=== PATIENT | male | born 1950 | race Caucasian/White ===

== ENCOUNTER 2020-11-16 09:25 | Inpatient (IN) ==
--- NOTE | 2020-10-19 10:41 | PAT Medication Instructions ---
Medication Instructions Date of Service October 19, 2020 Home Medications irbesartan 150 mg-hydrochlorothiazide 12.5 mg tablet 1 tab PO QAM metoprolol succinate 25 mg tablet,extended release 24 hr 25 mg PO QAM rivaroxaban 20 mg tablet 20 mg PO QAM tamsulosin 0.4 mg capsule 0.4 mg PO HS Hydroxymethybutyrate 1,000 mg PO QAM acetaminophen [Tylenol] 325 mg PO QID PRN cholecalciferol (vitamin D3) [Vitamin D3] 25 mcg PO DAILY coenzyme Q10 [Co Q-10] 100 mg PO DAILY multivitamin 1 cap PO QAM omega-3 fatty acids [Fish Oil] 1,000 mg PO DAILY zinc 50 mg PO DAILY ASK your prescriber and surgeon rivaroxaban 20 mg tablet 20 mg PO QAM STOP taking 2 weeks before surgery (or as soon as possible if surgery is within 2 weeks) Hydroxymethybutyrate 1,000 mg PO QAM coenzyme Q10 [Co Q-10] 100 mg PO DAILY omega-3 fatty acids [Fish Oil] 1,000 mg PO DAILY zinc 50 mg PO DAILY DO NOT take the morning of surgery irbesartan 150 mg-hydrochlorothiazide 12.5 mg tablet 1 tab PO QAM cholecalciferol (vitamin D3) [Vitamin D3] 25 mcg PO DAILY multivitamin 1 cap PO QAM Take morning of surgery With a small sip of water, OTHERWISE NOTHING TO EAT OR DRINK AFTER MIDNIGHT: metoprolol succinate 25 mg tablet,extended release 24 hr 25 mg PO QAM acetaminophen [Tylenol] 325 mg PO QID PRN (okay to take up to 4 hours prior to surgery if needed) Take evening before surgery tamsulosin 0.4 mg capsule 0.4 mg PO HS acetaminophen [Tylenol] 325 mg PO QID PRN (if needed) Other Notes If you have any questions please call us at [phone] or [phone] or [phone] or [phone]
--- NOTE | 2020-10-22 14:10 | Anesthesiology Consultation ---
Date of Service October 22, 2020 Assessment & Plan (1) Encounter for pre-operative examination: - COVID screening: Per assessment on 10/22: Travel screen negative since 10/05 (returned from travel to [place], [place] 10/05 for turkey hunting camping in the [facility]). No known COVID-19 positive contacts or current COVID-19 related symptoms. Patient was personally COVID positive 04/29/20 > Symptoms at time of loss of smell/taste, fatigue > resolved. Patient vaccinated. Surgeon arranging preop COVID testing. Awaiting results. - Xarelto instructions: per surgeon/prescriber - Cardiology office visit (03/22/20): "Continue Xarelto for stroke prevention in the setting of atrial fibrillation with [id number] = 2.. Intolerant of all statins.. patient was able to lower LCL to 79 with diet and Citrucel.. Asymptomatic coronary atherosclerosis based on CT from 06/19/2016.. Blood pressure elevated todaywe will increase metoprolol.. Stable from a cardiac standpoint for planned right ankle replacement." Now scheduled for left shoulder athroplasty. Chart Review Chart Review: Acceptable Risk for Surgery and Patient seen in Pre Admission Testing Teaching & Discussion Pre-Anesthesia Teaching/Discussion Notes: Instructed NPO after midnight before surgery,except medications with 15 cc of water. Medication instructions provided according to the PAT guidelines. History Surgery Operation Date: 11/16/20 10:15 Proposed Procedures p Left Reverse Total Shoulder Arthroplasty - Samir Andres, Height/Weight Height: 5 ft 11.75 in Weight: 101.1 kg Allergies Allergy/AdvReac Type Severity Reaction Status Date / Time No Known Allergies Allergy Verified 10/10/20 11:49 Medications Home Medications Medication Instructions Recorded Confirmed Last Taken irbesartan 150 1 tab PO QAM 08/21/20 10/10/20 Unknown mg-hydrochlorothiazide 12.5 mg tablet metoprolol succinate 25 mg 25 mg PO QAM 08/21/20 10/10/20 Unknown tablet,extended release 24 hr rivaroxaban 20 mg tablet 20 mg PO QAM 08/21/20 10/10/20 Unknown tamsulosin 0.4 mg capsule 0.4 mg PO 08/21/20 10/10/20 Unknown Hydroxymethybutyrate 1,000 mg PO QAM 10/10/20 10/10/20 Unknown acetaminophen [Tylenol] 325 mg PO QID PRN 10/10/20 10/10/20 Unknown cholecalciferol (vitamin D3) 25 mcg PO DAILY 10/10/20 10/10/20 Unknown [Vitamin D3] coenzyme Q10 [Co Q-10] 100 mg PO DAILY 10/10/20 10/10/20 Unknown multivitamin 1 cap PO QAM 10/10/20 10/10/20 Unknown omega-3 fatty acids [Fish Oil] 1,000 mg PO DAILY 10/10/20 10/10/20 Unknown zinc 50 mg PO DAILY 10/10/20 10/10/20 Unknown Past Medical History Medical History Atrial fibrillation BPH (benign prostatic hyperplasia) History of COVID-19 Dx 04/29/20 > Symptoms at time of loss of smell/taste, fatigue > resolved Hx of blood clots Post-op back surgery (2016)- on Xarelto Hypertension Obesity Osteoarthritis Exercise / Class Metabolic Activity II 4-5 Yardwork/Stairs/Walk up hill Past Surgical History Surgical History History of arthroscopy Right ankle (bone chip removal) History of lumbar fusion History of right ankle joint replacement Hx of colonoscopy Hx of right knee surgery Tendon repair Past Anesthesia History No Hx of Anesthesia Complications and No Family Hx of Anesthesia Complications History of PONV No Hx of PONV and Hx of Motion Sickness (+ boats) Social History Smoking Status: Never smoker Do You Dip or Chew Tobacco: No Hx Alcohol Use: Yes Alcohol type: beer alcohol intake frequency: a few times a month Hx Substance Use: No substance use type: does not use Review of Systems Patient denies chest pain, shortness of breath, dyspnea on exertion, fever, chills, cough, wheezing, palpitations. Physical Exam Vital Signs VITALS BP 123/79 P 59 TEMP 98.2 SP02 97%RA RESP 16 PHYSICAL Full cervical extension range of motion. Full TMJ range of motion. TMD 4 finger breaths Mallampati Score 1 Dentition: missing molars, + implant (left upper front) Lungs: clear throughout to auscultation Cardiac: regular rate and rhythm, no murmurs noted Spine: normal Carotid arteries: negative bruit Extremities: no edema Testing Laboratory Results 10/22/20 15:00 10/22/20 15:00 PT 11.9 Seconds (9.0-12.0) 10/22/20 15:00 INR 1.2 (0.9-1.1) H 10/22/20 15:00 APTT 30.9 Seconds (21.0-31.0) 10/22/20 15:00 Blood Type A Positive 10/22/20 15:00 Antibody Screen NEGATIVE 10/22/20 15:00 Electrocardiogram Date: 03/22/20 Sinus rhythm at 64 bpm. PAC. RBBB. Echocardiogram Date: 02/16/18 Normal LV cavity size, wall thickness and preserved LV systolic function. EF equals 60%. Stress Test Date: 10/01/16 Type: exercise Cardiolite exercise treadmill stress test with target heart rate achieved. Moderate dyspnea but no chest pain. Fair exercise tolerance. Normal uptake of radioactivity both the stress and resting images. There is no evidence of ischemic change or old myocardial infarct. There is normal left ventricular wall motion. LVEF 69%. Other Testing CT Thorax (09/17/20): Stable appearance of multiple small pulmonary nodules as compared to previous study of 07/11/2019. No evidence of new acute cardiopulmonary disease. Moderate coronary artery calcification is present.
[2020-10-22 15:38] LABS: Basophils # (auto) 0.04 K/uL (0-0.2); Basophils % (auto) 0.7 %; Eosinophils # (auto) 0.09 K/uL (0-0.5); Eosinophils % (auto) 1.6 %; Hematocrit (blood only) 43.6 % (42-52); Hemoglobin 14.9 g/dL (14.0-18.0); Immature Granulocytes # (auto) 0.01 K/uL (0.00-0.02); Immature Granulocytes % (auto) 0.2 %; Lymphocytes # (auto) 1.64 K/uL (1.2-3.4); Lymphocytes % (auto) 28.5 %; Mean Corpuscular Hemoglobin 32.7 pg (25-34); Mean Corpuscular Hgb Conc 34.2 g/dL (32-36); Mean Corpuscular Volume 95.8 fL (80-100); Mean Platelet Volume 9.6 fL (7.4-10.4); Monocytes # (auto) 0.76 K/uL (0.11-0.59); Monocytes % (auto) 13.2 %; Neutrophils # (auto) 3.21 K/uL (1.4-6.5); Neutrophils % (auto) 55.8 %; Platelet Count 347 K/uL (130-400); RDW Coefficient of Variation 13.3 % (11.5-14.5); RDW Standard Deviation 46.6 fL (36.4-46.3); Red Blood Count 4.55 M/uL (4.7-6.1); White Blood Count 5.75 K/uL (4.8-10.8)
[2020-10-22 15:47] LABS: BUN Creatinine Ratio 28.4 (10-20); Calcium 9.3 mg/dl (8.5-10.1); Creatinine Clr Calc Pharmacy 101.9 ml/min; Est GFR (African American) 103.8 ml/min; Est GFR (Non-African American) 89.5 ml/min; Potassium 3.9 mmol/L (3.5-5.1)
[2020-10-22 15:48] LABS: INR 1.2 (0.9-1.1); Partial Thromboplastin Ratio 1.2; Partial Thromboplastin Time 30.9 Seconds (21.0-31.0); Prothrombin Time 11.9 Seconds (9.0-12.0)
--- NOTE | 2020-11-15 15:59 | History & Physical Report ---
Date of Service November 15, 2020 Assessment & Plan (1) Rotator cuff arthropathy of left shoulder: We will proceed with a left reverse shoulder arthroplasty. Postoperatively he will be placed in a sling and kept overnight in the hospital for postoperative medical management. He plans to use [facility] for physical therapy upon discharge. History of Present Illness Chief Complaint: Rotator cuff arthropathy of the left shoulder. Primary Care Provider: Sonia Stewart PA-C Tushar is a pleasant 70-year-old female who is been dealing with chronic increasing left shoulder pain. He has an MRI of his left shoulder in 2019 which showed some partial-thickness cuff tearing. He was treated conservatively. He never had surgery on his shoulder. His shoulders become much much worse. 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 He has difficult time reach seen away from his body or doing anything overhead. He does have a lot of weakness of his shoulder. He had a repeat MRI which shows a massive chronic retracted rotator cuff tear. After failing conservative treatment, he has elected proceed with a left reverse shoulder arthroplasty.. Allergies Allergy/AdvReac Type Severity Reaction Status Date / Time No Known Allergies Allergy Verified 10/10/20 11:49 Home Medications Medication Instructions Recorded Confirmed Type irbesartan 150 1 tab PO QAM 08/21/20 10/10/20 History mg-hydrochlorothiazide 12.5 mg tablet metoprolol succinate 25 mg 25 mg PO QAM 08/21/20 10/10/20 History tablet,extended release 24 hr rivaroxaban 20 mg tablet 20 mg PO QAM 08/21/20 10/10/20 History tamsulosin 0.4 mg capsule 0.4 mg PO HS 08/21/20 10/10/20 History Hydroxymethybutyrate 1,000 mg PO QAM 10/10/20 10/10/20 History acetaminophen [Tylenol] 325 mg PO QID PRN 10/10/20 10/10/20 History cholecalciferol (vitamin D3) 25 mcg PO DAILY 10/10/20 10/10/20 History [Vitamin D3] coenzyme Q10 [Co Q-10] 100 mg PO DAILY 10/10/20 10/10/20 History multivitamin 1 cap PO QAM 10/10/20 10/10/20 History omega-3 fatty acids [Fish Oil] 1,000 mg PO DAILY 10/10/20 10/10/20 History zinc 50 mg PO DAILY 10/10/20 10/10/20 History Past Med/Surg History Medical History Atrial fibrillation BPH (benign prostatic hyperplasia) History of COVID-19 Dx 04/29/20 > Symptoms at time of loss of smell/taste, fatigue > resolved Hx of blood clots Post-op back surgery (2017)- on Xarelto Hypertension Obesity Osteoarthritis Surgical History History of arthroscopy Right ankle (bone chip removal) History of lumbar fusion History of right ankle joint replacement Hx of colonoscopy Hx of right knee surgery Tendon repair Social History Smoking Status: Never smoker Second Hand Exposure: No; Do You Dip or Chew Tobacco: No; Tobacco Cessation Education Requested by Patient: No Hx Alcohol Use: Yes Alcohol type: beer Hx Substance Use: No Preferred Language: Estonian Communication Ability: Effective Tilesetter Required: No Beliefs That Will Affect Care: None Current Living Situation: Spouse Other Information That Helps Us Care for You: No Feels Safe at Home: Yes Safety Concerns: Feels Safe At This Time Assistive Devices: None Review of Systems All systems reviewed & are unremarkable except as noted in HPI & below. Physical Exam On physical examination of the left shoulder, he has about 130 degrees forward elevation 130 degrees of abduction. He has 3-5 motion with full can testing and external rotation. Negative belly press test. He has a lot of pain in the subacromial space.. Constitutional WD/WN, vitals as above Eyes PERRL, conjunctivae normal, anicteric sclerae ENMT external ear and nose normal, oropharynx normal Neck trachea midline, no thyromegaly Respiratory normal respiratory effort Cardiovascular RRR, no murmur, no edema Gastrointestinal (Abdomen) normal bowel sounds, soft, nontender, no hepatosplenomegaly Psychiatric A+Ox3, euthymic affect Results & Data Results & Data Laboratory Results . Diagnostic Findings X-rays of the left shoulder show mild osteoarthritis. There is some blunting of the greater tuberosity. MRI of the left shoulder shows a massive chronic retracted rotator cuff tear that is retracted past the level of the glenoid.. PG Care Time/CCT Total # of Minutes Spent Total Time Spent with Patient: Total time spent is greater than 50% in coordination of care (as documented) at patient's floor/unit and/or counseling patient: Coding Level of Care Code None Diagnoses Rotator cuff arthropathy of left shoulder M12.812
[~2020-11-16 09:25] MED LIST: ACETAMINOPHEN 500 MG TAB PO SCH; BUPIVACAINE 0.5 % 5 MG/1 ML PF 10ML VIAL ONE; FAMOTIDINE 20 MG TAB PO SCH; GABAPENTIN 300 MG CAP PO SCH; LR 15ML/HR IV SCH; LR 60ML/HR IV SCH; ROPIVACAINE 0.5% HCL/PF 150 MG, BUPIVACAINE 0.75% MPF 20 ML, EPINEPHrine 30MG/30ML (OR ... INSTIL SCH; ceFAZolin 2000MG 2,000 MG/15 ML SYR IV SCH; dexAMETHasone 4 MG TAB PO SCH
[2020-11-16] MEDS ORDERED: SUGAMMADEX SODIUM 200 MG/2 ML VIAL IV ONE (10:33)
[2020-11-16] MEDS ORDERED: fentaNYL citrate 100 MCG/2 ML VIAL ONE (10:41)
[2020-11-16] MEDS ORDERED: MIDAZOLAM HCL 1 MG/ML 2ML VIAL ONE (10:41)
[2020-11-16] MEDS ORDERED: DEXAMETHASONE SOD INJ 4 MG/ML VIAL ONE (10:42)
[2020-11-16] MEDS ORDERED: PROPOFOL IV EMULSION 10 MG/ML 20 ML VIAL IV ONE (10:42)
[2020-11-16] MEDS ORDERED: LIDOCAINE 2% 2 ML VIAL/AMP(20MG/ML) INFIL ONE (10:42)
[2020-11-16] MEDS ORDERED: ROCURONIUM BROMIDE 10 MG/ML 5 ML VIAL IV ONE (10:42)
[2020-11-16] MEDS ORDERED: KETOROLAC 30 MG/ML VIAL ONE (10:42)
[2020-11-16] MEDS ORDERED: ONDANSETRON INJ 2 MG/ML 2 ML VIAL ONE (10:42)
--- NOTE | 2020-11-16 11:30 | History & Physical Bridge Note ---
Date of Service November 16, 2020 History & Physical Bridge Note I have examined the patient, reviewed the History & Physical and in the interval since the performance of the History & Physical I have noted the following changes of clinical significance: no changes noted
[2020-11-16] MEDS ORDERED: ORTHO JOINT ANESTHETIC ONE (11:47)
[2020-11-16] MEDS ORDERED: fentaNYL citrate 100 MCG/2 ML VIAL IV PRN (11:56)
[2020-11-16] MEDS ORDERED: PROMETHAZINE HCL 6.25 MG in SODIUM CHLORIDE 0.9% 50 ML IV PRN (11:56)
[2020-11-16] MEDS ORDERED: ATROPINE SULFATE 0.1 MG/ML 10ML SYR IV PRN (11:56)
[2020-11-16] MEDS ORDERED: KETOROLAC 30 MG/ML VIAL IV PRN (11:56)
[2020-11-16] MEDS ORDERED: ONDANSETRON INJ 2 MG/ML 2 ML VIAL IV PRN ×2 (11:56→15:12)
[2020-11-16] MEDS ORDERED: LABETALOL HCL IV 5 MG/ML 20ML IV PRN (11:56)
[2020-11-16] MEDS ORDERED: ePHEDrine sulfate 50 MG/ML AMP ONE (13:26)
--- NOTE | 2020-11-16 13:58 | Operative Report ---
PG Post Operative Report Pre & Post Diagnosis Operation Date: 11/16/20 11:50 Pre-Op Diagnosis: Rotator cuff arthropathy of left shoulder with tendinopathy of the long head of the biceps tendon Post-Op Diagnosis: Rotator cuff arthropathy of left shoulder with tendinopathy of the long head of the biceps tendon I identified the patient and participated in the time-out.: Yes Procedure Operation Date: 11/16/20 11:50 Actual Procedures p Left Reverse Total Shoulder Arthroplasty(Left) with open biceps tenodesis as a distinct and separate procedure (modifier 59)- Samir Andres DO Surgeon Samir Andres DO Reel And Rewinder Operator Samir Dixon PAC Estimated Blood Loss 250 Findings Consistent with Post-Op Diagnosis Specimens Left humeral head Complications none Disposition Disposition: Recovery Room Indications Tushar is a pleasant 70-year-old male who is been dealing with chronic increasing left shoulder pain and weakness. MRI showed a large chronic retracted rotator cuff tear. After failing conservative treatment, he elected proceed with a left reverse shoulder replacement. Description of Procedure A CPT code modifier 59: The long head of the biceps tendon was enlarged and inflamed consistent with tendinopathy. A tenodesis was opted. This was a separate and distinct portion of the procedure. For these reasons, a CPT code modifier 59 will be added to this case. Implants used: I used a [employer] Comprehensive reverse total shoulder arthroplasty system with a size 13 press fit micro humeral stem, a +3 offset humeral tray and a standard humeral bearing, a 25 mm small augment baseplate with a 6.5 mm central screw and superior and inferior locking screws, and a size 40 mm eccentric glenosphere. Tushar arrived at [facility] for the above procedure. He was seen in the preoperative holding area and the operative extremity was identified and signed. He was given a preoperative antibiotic, TXA, and an interscalene nerve block. He was taken back to the operating room, laid on table in supine position, and put under general anesthesia. He was then put into the beachchair position. The shoulder was then prepped and draped in sterile fashion. A timeout was done and the patient and the operative extremity was properly identified. A deltopectoral approach was used. Dissection was taken down through the fascia and the deltoid was retracted laterally and the conjoined tendon was retracted medially. The anterior shoulder was exposed. The biceps groove was opened up and the biceps tendon was examined extensively. The biceps tendon demonstrated enlargement and inflammatory changes consistent with longstanding inflammation in the context of osteoarthritis and cuff arthropathy. The long head of the biceps tendon was then tenodesed to the upper border of the pectoralis major. This was a separate and distinct portion of the procedure. The subscapularis was then directly released off the lesser tuberosity with a peel technique. The inferior capsule was released and the humeral head was dislocated. A canal finding reamer was sent down the center of the humeral canal. Sequential reaming up to a size 13 reamer was done. Off that reamer, a proximal humeral resection guide was placed. The proximal humerus was resected at 135 of inclination and 25 of retroversion. Osteophytes were then removed and the glenoid was exposed. Time was spent doing a complete capsular and labral release. The glenoid guide was then placed in the inferior aspect of the glenoid. A 3.2 mm Steinmann pin was then placed into the glenoid vault at 10 of inclination. The glenoid baseplate was then reamed. The final size 25 mm small augment baseplate was then impacted in the place. A 6.5 mm central screw was then placed followed by superior and inferior locking screws. A 40 mm eccentric glenosphere was then impacted into place. Surrounding soft tissues were then injected with 100 cc an orthopedic pain control cocktail. The proximal humerus was then exposed. Sequential broaching of the humerus up to a size 13 broach was done. Off that broach a +3 offset humeral tray was trialed. The shoulder was then reduced, brought through a full range of motion, and felt to be stable. The shoulder was then dislocated and the broach was removed. The final size 13 micro press-fit humeral stem was then impacted into place. A standard humeral bearing was then snapped onto a +3 offset humeral tray. The humeral tray was then impacted onto the humeral stem. The shoulder was once again reduced, brought through a full range of motion, and felt to be stable. The subscapularis was then tenodesed back to the lesser tuberosity with transosseous FiberWire sutures and side to side sutures with the arm in 45 of external rotation. A dilute betadyne lavage was then done for 3 minutes. The joint was then irrigated with normal saline solution. Hemostasis was obtained. The interval was closed with 2-0 Vicryl suture. The skin was then closed with 2-0 Vicryl and allison. A Silverlon dressing was placed and the arm was rested in a regular arm sling. He was then extubated and transferred to a hospital bed. He taken to the postanesthesia care unit in stable condition. He tolerated the procedure well. Samir Dixon PA-C, was present for the entire procedure. He was critical for patient positioning, prepping, draping, retraction exposure, wound closure and application of sterile dressing. I attest to the content of the Intraoperative Record and any orders documented therein. Any exceptions are noted below.
--- NOTE | 2020-11-16 14:36 | Anesthesiology Progress Note ---
Date of Service November 16, 2020 Anesthesia Post Procedure Vital Signs Vital Signs: Temp Pulse Pulse Resp BP BP Pulse Ox 11/16/20 14:30 72 17 145/82 H 97 11/16/20 14:20 73 17 134/68 97 11/16/20 14:14 36.0 C L 74 18 136/77 97 11/16/20 10:01 36.7 C 58 L 20 170/93 H 97 Transfer of Care Handoff Completed per policy Notes Mental Status: alert / awake / arousable Patient Amnestic to Procedure: Yes Nausea / Vomiting: adequately controlled Pain: adequately controlled Airway Patency, RR, SpO2: stable & adequate BP & HR: stable & adequate Hydration State: stable & adequate Anesthetic Complications: no major complications apparent
--- NOTE | 2020-11-16 14:47 | XRay Report ---
XR shoulder LT min 2V routine HISTORY: 70 years-old Male Post shoulder surgery left shoulder total joint arthroplasty COMPARISON: Shoulder radiographs 08/21/2020 TECHNIQUE: 2 views of the left shoulder FINDINGS: Reverse total joint arthroplasty. Overlying skin allison are present along with expected postoperativ e soft tissue swelling with deep tissue air. Marginal spurring of the AC joint. No acute fracture or unexpected opaque foreign body. IMPRESSION: Reverse left shoulder total joint arthroplasty with expected postoperative changes. ACT 112: Negative or not required by law. The above report was generated using voice recognition software. It may contain grammatical, syntax o r spelling errors. Electronically signed by: Cyril Espinosa M.D. 11/16/2020 2:46 PM
[2020-11-16] MEDS ORDERED: oxyCODONE HCL IR 5 MG TAB (IMMEDIATE RELEASE) PO PRN (15:12)
[2020-11-16] MEDS ORDERED: HYDROmorphone INJ 0.5 MG/0.5 ML SYR IV PRN (15:12)
[2020-11-16] MEDS ORDERED: bisacodyL 10 MG SUPP PR PRN (15:12)
[2020-11-16] MEDS ORDERED: MAGNESIUM HYDROXIDE SUSP 30 ML UDC PO PRN (15:12)
[2020-11-16] MEDS ORDERED: METOCLOPRAMIDE HCL INJ 5 MG/ML 2 ML VIAL IV PRN (15:12)
[2020-11-16] MEDS ORDERED: NALOXONE HCL 0.4 MG/1 ML VIAL/CARP IV PRN (15:12)
[2020-11-16] MEDS: SODIUM CHLORIDE 0.9% 1000ML 1,000 ML IV SCH (17:35)
[2020-11-16] MEDS: KETOROLAC TROMETHAMINE 15 MG/ML VIAL IV SCH ×2 (17:36→23:34)
[2020-11-16] MEDS: ceFAZolin 2000MG 2,000 MG/15 ML SYR IV SCH (19:45)
[2020-11-16] MEDS ORDERED: SENNA 8.6 MG TAB PO SCH (21:00)
[2020-11-16] MEDS ORDERED: TAMSULOSIN HCL 0.4 MG CAP PO SCH (21:00)
[2020-11-16] MEDS: DOCUSATE SODIUM 100 MG CAP PO SCH (22:04)
[2020-11-16] MEDS: ACETAMINOPHEN 500 MG TAB PO SCH (22:05)
[2020-11-17] MEDS: SODIUM CHLORIDE 0.9% 1000ML 1,000 ML IV SCH (03:18)
[2020-11-17] MEDS: ceFAZolin 2000MG 2,000 MG/15 ML SYR IV SCH (03:45)
[2020-11-17] MEDS: ACETAMINOPHEN 500 MG TAB PO SCH (06:11)
[2020-11-17] MEDS: KETOROLAC TROMETHAMINE 15 MG/ML VIAL IV SCH (06:12)
--- NOTE | 2020-11-17 07:26 | Orthopedic Progress Note ---
Date of Service November 17, 2020 Assessment & Plan (1) Status post reverse total replacement of left shoulder: Overall is doing very well. Is not having much pain in the left shoulder. He will be seen by physical therapy today for ambulation and range of motion exercises. He can be discharged home later today. He will follow-up with orthopedics in 2 weeks. Hope Finley was seen and examined at bedside this morning. Overall is doing very well. Is not having any pain in the shoulder. He is very happy with his progress to this point. Has no complaints.. Review of Systems All systems reviewed & are unremarkable except as noted in HPI & below. Physical Exam On physical examination of the left shoulder, the dressing is clean and dry. His radial, median, and ulnar nerves were checked and intact at his wrist. His axillary nerve was not checked yet. He is wearing his sling as instructed.. Results & Data Results & Data Laboratory Results . Diagnostic Findings Postoperative x-rays of the left shoulder show the prosthesis to be in anatomic alignment without any evidence of fracture, dislocation, or loosening. PG Care Time/CCT Total # of Minutes Spent Total Time Spent with Patient: Total time spent is greater than 50% in coordination of care (as documented) at patient's floor/unit and/or counseling patient: Coding Level of Care Code 75482 Post Operative Follow-Up Diagnoses Status post reverse total replacement of left shoulder Z96.612
--- NOTE | 2020-11-17 07:27 | Discharge Summary ---
Date of Service November 17, 2020 Admission HPI (Per Admitting) Tushar is a pleasant 70-year-old female who is been dealing with chronic increasing left shoulder pain. He has an MRI of his left shoulder in 2019 which showed some partial-thickness cuff tearing. He was treated conservatively. He never had surgery on his shoulder. His shoulders become much much worse. 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 He has difficult time reach seen away from his body or doing anything overhead. He does have a lot of weakness of his shoulder. He had a repeat MRI which shows a massive chronic retracted rotator cuff tear. After failing conservative treatment, he has elected proceed with a left reverse shoulder arthroplasty.. Admission Exam (Per Admitting) On physical examination of the left shoulder, he has about 130 degrees forward elevation 130 degrees of abduction. He has 3-5 motion with full can testing and external rotation. Negative belly press test. He has a lot of pain in the subacromial space.. Principal Diagnosis Same as "Discharge Diagnosis" noted below under Discharge Instructions. Discharge Exam On physical examination of the left shoulder, the dressing is clean and dry. His radial, median, and ulnar nerves were checked and intact at his wrist. His axillary nerve was not checked yet. He is wearing his sling as instructed.. Discharge Data Procedures Performed Operation Date: 11/16/20 11:50 Actual Procedures p Left Reverse Total Shoulder Arthroplasty(Left) - Samir Andres DO Ordered Studies 11/16/20 05:00 US - OR guided needle placemen Routine Hospital Course (1) Status post reverse total replacement of left shoulder: On 11/16/2020 Tushar arrived at [facility] and underwent a left reverse shoulder replacement without complication. He had a general anesthetic and a left interscalene nerve block. Postoperatively he was placed in a sling and transferred to the general orthopedic floors. His hospital course was uneventful. On postop day #1 his vital signs were stable and his pain was well controlled. He was able to participate well with physical therapy doing ambulation and range of motion exercises. He was then discharged home. He will follow-up with orthopedics in 2 weeks. PG Care Time/CCT Total # of Minutes Spent Total Time Spent with Patient: Total time spent is greater than 50% in coordination of care (as documented) at patient's floor/unit and/or counseling patient: Discharge Plan Discharge Items Patient Disposition: Home - Home Health Services Reason For Visit: Left Shoulder Osteoarthritis Discharge Diagnosis: Left reverse shoulder replacement Activity: As commented below Non-emergency contact: Surgeon Call non-emergency contact if: your wound has increased redness and your wound has increased drainage Follow-up/Referrals: Sonia Stewart PA-C [Primary Care Provider] - Diet: Regular Addtl Attending Provider Instructions: Activity and Therapy Recommendations: * If you are using [facility] then therapy will be provided at your home until they feel you have accomplished all of your goals. * If you are using [facility] then Physical Therapy will be provided until they feel you are ready to start Outpatient Physical Therapy. * If you are not using home therapy then Outpatient Physical Therapy should start about 3-5 days from your day of surgery. Therapy will last about 8-12 weeks * Wear your sling for 3 weeks, unless otherwise instructed. You may remove your sling to shower and to dress, but otherwise, you should be in your sling at all times, including while sleeping * The shoulder replacement is very stable and you can use your hand while in the sling * You were shown a series of exercises in the hospital. Do these exercises daily including the exercises you were shown in physical therapy. Medications: * Narcotic You will likely be sent home from the hospital with a prescription for the narcotic pain medication that worked best throughout your stay. * Other medications may be prescribed for specific circumstances. If you have any questions, please call the office at . * Resume previous home medications unless otherwise instructed Dressing Care: Leave the Silverlon dressing in place for 7 days. After 7 days you may remove the dressing. If the incision is not draining then you may leave the allison open to air. If there is a little bit of drainage or if the allison are getting stuck on your clothing then cover the incision with a dry dressing. The allison will be removed at your 2 week follow-up appointment. Showering: You may shower with the Silverlon dressing in place. Do not let the shower spray hit the dressing directly. Pat the Silverlon dressing dry. If the dressing becomes wet underneath, then simply remove the dressing. Keep the incision dry until you are 7 days out from the day of surgery. After 7 days you may remove the Silverlon dressing and shower with the allison exposed. Let soapy water run over the allison and pat them dry. Do not scrub or soak the incision. Things To Watch For: * Drainage from the incision site that occurs more than one week after your surgery. * Increased redness at the incision site. * Fever above 102 degrees Fahrenheit. * Unusual chest pain or shortness of breath. * Call [facility] at with any of the above problems Follow-Up Visit: Follow-up with Dr. Andres's PA (Samir Dixon) 2-3 weeks after your day of surgery. He will remove your allison and answer any questions. If you have any additional questions or concerns, Dr Andres is usually in the office at the same time and will be available An appointment was probably scheduled when you signed-up for surgery in the office. If you have any questions call More detailed instructions as well as Frequently Asked Questions were provided in a folder by our office when you signed-up for surgery. Please review these instructions when you get home. If you have any further questions or concerns, please feel free to call the office at [phone] Pending Studies at Discharge: No Stand-Alone Forms: My [facility] Medications and DC Order Prescriptions: New oxycodone 5 mg Tablet 5 mg PO Q4H PRN (Reason: pain) Qty: 30 RF: 0 Continued irbesartan-hydrochlorothiazide 150-12.5 mg tablet 1 tab PO QAM RF: 0 metoprolol succinate 25 mg tablet extended release 24 hr 25 mg PO QAM RF: 0 Xarelto 20 mg tablet 20 mg PO QAM RF: 0 tamsulosin 0.4 mg capsule 0.4 mg PO HS RF: 0 acetaminophen [Tylenol] 325 mg Tablet 325 mg PO QID PRN (Reason: Pain) RF: 0 zinc 50 mg Tablet 50 mg PO DAILY RF: 0 multivitamin Capsule 1 cap PO QAM RF: 0 cholecalciferol (vitamin D3) [Vitamin D3] 25 mcg (1,000 unit) Capsule 25 mcg PO DAILY RF: 0 coenzyme Q10 [Co Q-10] 100 mg Capsule 100 mg PO DAILY RF: 0 Fish Oil Capsule 1,000 mg PO DAILY RF: 0 Hydroxymethybutyrate 1,000 mg PO QAM RF: 0 Discharge Orders: Discharge Order (Routine); Ordered 11/17/20 Ordered By: Samir Andres Admission Data Admit Date/Time: 11/16/20 14:11 Attending Provider: Samir Andres Admit Provider: Samir Andres Primary Care Provider: Sonia Stewart
[2020-11-17] MEDS ORDERED: dexAMETHasone 4 MG TAB PO SCH (08:00)
[2020-11-17] MEDS: DOCUSATE SODIUM 100 MG CAP PO SCH (08:23)
[2020-11-17] MEDS ORDERED: hydroCHLOROthiazide 25 MG TAB PO SCH (09:00)
[2020-11-17] MEDS ORDERED: IRBESARTAN 150 MG TAB PO SCH (09:00)
[2020-11-17] MEDS ORDERED: MULTIVITAMIN TAB PO SCH (09:00)
[2020-11-17] MEDS ORDERED: METOPROLOL SUCC 25MG EXT REL TAB PO SCH (09:00)
[2020-11-17] MEDS ORDERED: RIVAROXABAN 20 MG TAB PO SCH (09:00)
[2020-11-17] MEDS ORDERED: [UNRECOGNIZED DRUG - OTHER] PO SCH (09:00)
== END 2020-11-17 11:21 | disposition home or self-care (01) | DRG 483 ==
LOC: ASU 09:25 → 3E 14:11